=== PATIENT | male | born 1995 | race African-American/Black ===

== ENCOUNTER 2023-05-28 18:40 | Emergency (ER) | payer MEDICAID ==
[~2023-05-28] VITALS: Ht 185.4 cm; Wt 100.7 kg
[2023-05-28 18:43] VITALS: BP 138/82; TEMP 98.2
[2023-05-28] MEDS ORDERED: DEXAMETHASONE 10 MG/ML VIAL IM ONE (19:00)
[2023-05-28] MEDS ORDERED: DIPHENHYDRAMINE 50MG/ML VIAL IM ONE (19:00)
[2023-05-28] MEDS ORDERED: FAMOTIDINE 20MG TABLET PO ONE (19:00)
[2023-05-28 19:45] VITALS: PULSE 78; RESP 20; O2SAT 98
[2023-05-28] MEDS: ALBUTEROL (0.083%) 2.5MG/3ML NEB HHN SCH ×2 (19:53→20:12)
[2023-05-28] MEDS ORDERED: P20 MT (20:40)
[2023-05-28] MEDS ORDERED: DIPH25CA83 MT (20:40)
[2023-05-28] MEDS ORDERED: EPIN0.3P3 IM (20:40)
== END 2023-05-28 21:57 | disposition home or self-care (01) ==
LOC: ER 18:40
DX: T78.40XA Allergy, unspecified, initial encounter (principal); J45.909 Unspecified asthma, uncomplicated; Z79.899 Other long term (current) drug therapy; X58.XXXA Exposure to other specified factors, initial encounter
CPT/HCPCS: 94640; 96372; 99284; J1100; J1200; Z7610 ×3